=== PATIENT | male | born 1985 | race Caucasian/White ===

== ENCOUNTER 2020-06-17 11:57 | Emergency (ER) | payer BC, SELFPAY ==
[2020-06-17 12:00] VITALS: BP 126/90; PULSE 97; RESP 16; TEMP 37.1; O2SAT 97; BMI 27.6
--- NOTE | 2020-06-17 13:48 | HMH.EDUTC ---
[facility] [place] Disposition Clinical Impression: Encounter for laboratory testing for COVID-19 virus Disposition: Home, Self-Care Condition on Discharge: Good Instructions: DI for COVID-19 (Suspected or Confirmed ), Coronavirus Disease 2019, COVID-19: Testing and Tracing, Preventing the Spread of Coronavirus Discharge Instructions Additional Instructions: *Monitor Temp, Over the counter Motrin or Tylenol as directed/as needed Tylenol every 4 hours and Motrin every 6 hours (as long as your family doctor has told you that you can take it) for fever or pain. and straight to ER if unable to lower temp less than 101.0 after medication given *Warm salt water gargles may help to soothe the throat *Throat Lozenges *Warm fluids like tea with honey may help to soothe the throat *Sleep elevated *Humidifier/Vaporizer Follow up IMMEDIATELY for new or worsening symptoms or no Noticeable improvement over the next 48-72 hours. 911 for difficulty breathing or swallowing You were tested for today for COVID19 your test result should be back in the next 24-48 hours, you may call to the [facility] to see if your test results are back in the next 48 hours [phone] [facility] hours are 9am-9pm You was given a handout with instructions for Self Quarantine and Self isolation for while you wait on test results and what to do if they are positive If you are positive the Health Dept will be contacting you also Referrals: Provider,Referral, [Primary Care Provider] - As needed Forms: Work/School Release Time of Disposition: 13:50 Medical Decision Making - Antonio Inquiry Pt receiving controlled substance: No Antonio was queried for this patient: No Vital Signs: 06/17/20 12:00 Temperature 98.8 F Temperature Source Oral Pulse Rate [Right] 97 H Respiratory Rate 16 Blood Pressure [Right Arm] 126/90 Blood Pressure Mean [Right Arm] 102 Blood Pressure Source [Right Arm] Automatic Cuff Blood Pressure Position [Right Arm] Sitting 02 Sat by Pulse Oximetry 97 Oxygen Delivery Method Room Air Orders (Tests/Meds): ORDERS Category Date Time Status Covid-19 Nasal PCR ([facility]) Routine Lab 06/17/20 13:00 Received [facility] [place] HPI - General Stated complaint: covid exposure fever aches and tired headache Time Seen by Provider: 06/17/20 13:48 Mode of Arrival: Ambulatory Source of Information: Patient Limitations: No Limitations Description of Symptoms (Recalled from Triage Doc. by RN): wants covid test HEENT Symptoms (Recalled from RN notes): No Resp Symptoms (Recalled from RN notes): No Skin Symptoms (Recalled from RN notes): No MS Symptoms (Recalled from RN notes): No Functional Status (Recalled from RN notes): na - History of Present Illness Provider Complaint: Patient state that he was recently around 2 people that has recently tested positive for COVID State that he had low grade fever this monring body aches chills and headache State that he was worried that he may have it and wanted to get tested - Worker's Comp Is this a Worker's Comp case?: No [facility] History - Hepatitis A Screen Drug use history?: No High risk sexual behaviors?: No History of sexually transmitted infection?: No Currently employed?: No Childcare worker?: No Do you have indoor plumbing?: Yes Do you have electricity?: Yes Attestation statement:: This patient has been screened for Hepatitis A risk factors. I have reviewed the patient's past medical history: Yes ROS Obtained: Yes All systems reviewed & no additional complaints, Yes Systems reviewed as appropriate & no additional complaints - Constitutional Constitutional: Reports system reviewed and no additional complaints, except as docu, Reports body ache, Reports chills, Reports fatigue, Reports fever(s), Reports headache(s) - ENT Ears, Nose, Mouth, and Throat: Reports system reviewed and no additional complaints, except as docu - Cardiovascular Cardiovascular: Reports system reviewed and no additional complaints, except as
[2020-06-17 14:09] VITALS: BP 124/87; PULSE 95; RESP 16; TEMP 37.1; O2SAT 98
--- NOTE | 2020-06-17 21:16 | PC.NURSE ---
Called pt and let him know positive results, left voicemail to mile
== END 2020-06-17 14:10 | disposition home or self-care (01) ==
PROVIDERS: Emergency Provider Nurse Practitioner
DX: U07.1 COVID-19 (principal)
CPT/HCPCS: 99202; G0463; U0003

== ENCOUNTER 2020-11-22 22:01 | Emergency (ER) | payer BC, SELFPAY ==
[2020-11-22 22:03] VITALS: BP 144/99; PULSE 74; RESP 17; TEMP 36.6; O2SAT 99; BMI 29.0
[2020-11-22 22:28] VITALS: BMI 29.0
--- NOTE | 2020-11-22 22:45 | XR_ITS ---
PROCEDURE INFORMATION: Exam: XR Chest Exam date and time: 11/22/20 10:45 PM Age: 35 years old Clinical indication: Chest pressure; Patient HX: Chest pain, toothache, elevated BP TECHNIQUE: Imaging protocol: XR of the chest. Views: 2 views. COMPARISON: No relevant prior studies available. FINDINGS: Lungs: Unremarkable. No consolidation. Pleural spaces: Unremarkable. No pleural effusion. No pneumothorax. Heart/Mediastinum: Unremarkable. No cardiomegaly. Bones/joints: Unremarkable. IMPRESSION: No acute findings.
[2020-11-22 22:46] VITALS: BP 143/99; PULSE 76; O2SAT 98
--- NOTE | 2020-11-22 22:47 | ECG_ITS ---
APPROVED REPORT Exam: Resting ECG HR:70 bpm ECG Measurements Heart Rate 70 AXES AK 150 P 59 QRSd 76 QRS 38 QT 358 T 34 QTc 386 Conclusion Normal sinus rhythm Left atrial abnormality Borderline ECG Electronically signed by : Arnel Briones, 11/26/2020 11:11:17
[2020-11-22 23:00] VITALS: BP 143/100; PULSE 75; O2SAT 95
[2020-11-22 23:02] LABS: Basophils # 0.1 K/mm3 (0-0.2); Basophils % 0.9 % (0.1-2.0); Eosinophils # 0.3 K/mm3 (0.0-0.4); Hemoglobin 15.9 g/dL (14.1-18.0); Lymphocytes # 2.4 K/mm3 (0.7-4.5); Lymphocytes % 26.1 % (10-50); Mean Corpuscular HGB Conc 33.8 g/dL (31.8-35.4); Mean Corpuscular Volume 91.6 fl (80-94); Mean Platelet Volume 7.9 fl (7.4-10.4); Monocytes # 0.9 K/mm3 (0.1-1.0); Neutrophils # 5.5 K/mm3 (1.8-7.8); Platelet Count 309 K/mm3 (142-424); Red Blood Count 5.14 M/mm3 (4.60-6.20); Red Cell Distribution Width 12.8 % (11.5-17.5); White Blood Count 9.2 K/mm3 (4.8-10.8)
[2020-11-22 23:04] LABS: Chloride 100 mmol/L (98-107); Sodium 137 mmol/L (136-145)
[2020-11-22 23:05] LABS: Potassium 3.7 mmoL/L (3.5-5.1)
[2020-11-22 23:07] LABS: Alanine Aminotransferase 38 U/L (12-78); Albumin Level 4.7 g/dl (3.5-5.0); Alkaline Phosphatase 67 U/L (38-126); Anion Gap 10.7 mEq/L (5-15); Aspartate Amino Transferase 32 U/L (17-59); Bilirubin,Direct 0.2 mg/dl (0.0-0.4); Bilirubin,Indirect 0.2 mg/dL (0.0-0.9); Bilirubin,Total 0.4 mg/dl (0.2-1.3); Bilirubin,Unconjugated 0.2 mg/dL (0.0-1.1); Blood Urea Nitrogen 10 mg/dl (9-20); Calcium 9.4 mg/dl (8.4-10.2); Carbon Dioxide 30 mmol/L (22.0-30.0); Creatinine Clearance Estimated 178 mL/min (50-200); Estimated Glomerular Filt Rate 130 ml/min (>60); GFR (African American) 157 ML/MIN (>60); Glucose 90 mg/dl (74-100); Total Protein,Serum 7.9 g/dl (6.3-8.2)
[2020-11-22 23:13] LABS: C-Reactive Protein 5.9 mg/L (0-4)
[2020-11-22 23:24] LABS: Troponin I < 0.01 ng/ml (0.00-0.034)
--- NOTE | 2020-11-22 23:30 | HMH.EDGENADL ---
ED Disposition Clinical Impression: Pain, dental, Dental infection, Elevated BP without diagnosis of hypertension Disposition: Home, Self-Care Condition on Discharge: Good Instructions: DI for Dental Pain Additional Instructions: use meds and see dentist and pcp Prescriptions: clindamycin HCL [Clindamycin HCl] 300 mg PO TID #21 cap Transmission Status: Pending to [facility][id number] Referrals: Provider,Referral, [Primary Care Provider] - - Critical Care Critical Care Time: No Attestation: On 11/22/20, the high probability of a clinically significant, sudden or life threatening deterioration of the following system(s) required my full and direct attention, intervention and personal management. The time I documented below is in addition to time spent performing reported procedures but includes the following listed in this critical care notation. Medical Decision Making - Medical Records Medical records reviewed: Yes: I reviewed the patient's medical records. - Antonio Inquiry Pt receiving controlled substance: No Vital Signs: 11/22/20 22:03 11/22/20 22:46 11/22/20 23:00 Temperature 97.8 F Temperature Source Oral Pulse Rate 76 75 Pulse Rate [Right] 74 Respiratory Rate 17 Blood Pressure 143/99 H 143/100 H Blood Pressure [Right Arm] 144/99 H Blood Pressure Mean 113 113 Blood Pressure Mean [Right Arm] 114 Blood Pressure Source [Right Arm] Automatic Cuff 02 Sat by Pulse Oximetry 99 98 95 Oxygen Delivery Method Room Air Room Air Room Air - Lab Data Lab results reviewed: Yes: I reviewed the patient's lab results. Lab Results 11/22/20 22:40: WBC 9.2, RBC 5.14, Hgb 15.9, Hct 47.0, MCV 91.6, MCH 31.0, MCHC 33.8, RDW 12.8, Plt Count 309, MPV 7.9, Neut % (Auto) 60.0, Lymph % (Auto) 26.1, [place] % (Auto) 10.0 H, Eos % (Auto) 3.0, Baso % (Auto) 0.9, Neut # (Auto) 5.5, Lymph # (Auto) 2.4, [place] # (Auto) 0.9, Eos # (Auto) 0.3, Baso # (Auto) 0.1 11/22/20 22:40: Sodium 137, Potassium 3.7, Chloride 100, Carbon Dioxide 30, Anion Gap 10.7, BUN 10, Creatinine 0.70, Estimated Creat Clear 178, Estimated GFR 130, Est GFR ( Amer) 157, Glucose 90, Calcium 9.4, Total Bilirubin 0.4, Direct Bilirubin 0.2, Conjugated Bilirubin 0.0, Indirect Bilirubin 0.2, Unconjugated Bilirubin 0.2, AST 32, ALT 38, Alkaline Phosphatase 67, Troponin I < 0.01, C-Reactive Protein 5.9 H, Total Protein 7.9, Albumin 4.7 Result diagrams: 11/22/20 22:40 11/22/20 22:40 Orders (Tests/Meds): ED MEDICATIONS Generic Name Dose Route Start Last Admin Trade Name Freq PRN Reason Stop Dose Admin Benzocaine/Butamben/Tetracaine HCl 1 gm 11/22/20 23:23 11/22/20 23:25 Tetracaine/Benzocaine/Butamben 56 Gm [place] TP 12/22/20 23:22 1 gm NEEDED PRN Administration Toothache Discontinued Medications Generic Name Dose Route Start Last Admin Trade Name Freq PRN Reason Stop Dose Admin Lidocaine HCl 15 ml 11/22/20 23:23 11/22/20 23:25 Lidocaine 2% Viscous [place] 15ml Udc PO 11/22/20 23:24 15 ml ONCE ONE Administration ORDERS Category Date Time Status Complete Blood Count Auto Diff Stat Lab 11/22/20 22:40 Results Erythrocyte Sedimentation Rate Stat Lab 11/22/20 22:40 Results Procalcitonin Stat Lab 11/22/20 22:40 Received Troponin I Q3H Lab 11/23/20 02:00 Ordered Troponin I Q3H Lab 11/23/20 05:00 Ordered - Radiology Data #1 Image(s): Chest Image Reviewed: Yes I reviewed the patient's radiology image Preliminary Findings: Normal/NAD - ECG Data Tracing #1 Normal Sinus Rhythm: Yes Ischemic changes: non-specific ST-T wave changes - KENDAL Score for Non-Stemi Age of Patient: 30-39 years old Heart Rate: 70-89 bpm Systolic Blood Pressure: 140-159 mmHg Serum Creatinine: 0.40-0.79 mg/dl CHF [place] Class: I-No CHF Other Risk Factors: None Non-Stemi Risk Score: 45 Medical Decision Narrative: will need to see pcp about bp and dentist regarding teeth General Adult
[2020-11-22 23:34] LABS: Erythrocyte Sedimentation Rate 11 mm/hr (0-15)
[2020-11-22 23:43] LABS: Procalcitonin 0.141 ng/mL (0.0-2.0)
[2020-11-22 23:52] VITALS: BP 147/96; PULSE 72; RESP 16; TEMP 36.7; O2SAT 96
== END 2020-11-22 23:55 | disposition home or self-care (01) ==
PROVIDERS: Emergency Provider Emergency Medicine
DX: K04.7 Periapical abscess without sinus (principal); R03.0 Elevated blood-pressure reading, without diagnosis of hypertension
CPT/HCPCS: 71046; 80048; 80076; 84145; 84484; 85025; 85651; 86140; 93005; 99282